=== PATIENT | female | born 1975 | race Two or more races ===

== ENCOUNTER 2024-11-10 13:31 | Emergency (ER) | payer BC ==
[~2024-11-10] VITALS: Ht 157.5 cm; Wt 67.0 kg
[2024-11-10 13:50] VITALS: O2SAT 100
[2024-11-10 14:37] VITALS: TEMP 36.7; O2SAT 100
[2024-11-10] MEDS ORDERED: LIDO700A30 TP (14:48)
[2024-11-10] MEDS ORDERED: METH-653 MT (14:48)
[2024-11-10] MEDS ORDERED: IBUP-2029 MT (14:48)
[2024-11-10 15:14] VITALS: BP 112/80; PULSE 75; RESP 18
[2024-11-10] MEDS: METHOCARBAMOL 500MG TABLET PO ONE (15:14)
[2024-11-10] MEDS: KETOROLAC 30MG/ML VIAL IM ONE (15:14)
== END 2024-11-10 15:15 | disposition home or self-care (01) ==
LOC: ER 13:31
DX: S33.5XXA Sprain of ligaments of lumbar spine, initial encounter (principal); E03.9 Hypothyroidism, unspecified; Z90.49 Acquired absence of other specified parts of digestive tract; V43.52XA Car driver injured in collision with other type car in traffic accident, initial encounter; Y93.89 Activity, other specified; Y92.89 Other specified places as the place of occurrence of the external cause; Y99.8 Other external cause status
CPT/HCPCS: 99283; 96372; J1885